=== PATIENT | female | born 1950 | race African-American/Black ===

== ENCOUNTER 2018-06-19 11:27 | Emergency (ER) | payer MEDICARE, OTHER ==
[2018-06-19] MEDS: MECLIZINE 12.5 MG TAB PO (15:17)
[2018-06-19] MEDS: NICARDipine HCL 30 MG CAPSULE PO (15:17)
== END 2018-06-19 16:21 | disposition home or self-care (01) ==
LOC: E/R 11:27
DX: R42 Dizziness and giddiness (principal); E11.9 Type 2 diabetes mellitus without complications; I10 Essential (primary) hypertension; Z79.82 Long term (current) use of aspirin; Z79.4 Long term (current) use of insulin; Z79.01 Long term (current) use of anticoagulants
CPT/HCPCS: 70450; 82962; 93005; 99284-25

== ENCOUNTER 2018-11-01 21:38 | Emergency (ER) | payer MEDICARE, OTHER ==
[2018-11-01] MEDS ORDERED: KETOROLAC 60 MG INJ IM (22:00)
[2018-11-01] MEDS: morphine 2 MG INJ IV (22:34)
[2018-11-01] MEDS: DIPHTH/TET/ACEL PERTUSS (ADULT) 0.5 ML VIAL IM* (22:35)
[2018-11-01] MEDS: BACITRACIN 0.9 GM OINT TOP (22:36)
[2018-11-01] MEDS: morphine 2 MG INJ IM (22:39)
[2018-11-01] MEDS: BACITRACIN 0.5%/ZINC 28.35 GM OINT TOP (23:06)
== END 2018-11-02 00:30 | disposition home or self-care (01) ==
LOC: FTE 11-02 00:30
DX: T24.211A Burn of second degree of right thigh, initial encounter (principal); T24.212A Burn of second degree of left thigh, initial encounter; I10 Essential (primary) hypertension; E11.9 Type 2 diabetes mellitus without complications; X10.0XXA Contact with hot drinks, initial encounter; Y92.9 Unspecified place or not applicable; Z23 Encounter for immunization
CPT/HCPCS: 16020; 90471; 90715; 96372; 99284-25